=== PATIENT | female | born 1930 | race Caucasian/White ===

== ENCOUNTER 2017-03-11 16:49 | Emergency (ER) | payer MEDICARE ==
[2017-03-11] MEDS ORDERED: Zofran 4 MG/2 ML VIAL IV ONE (17:14)
[2017-03-11] MEDS ORDERED: Sodium Chloride 0.9% 1000 ML 1,000 ML IV SCH (17:15)
--- NOTE | 2017-03-11 17:22 | ERPHSYRPT ---
- History of Present Illness Time Seen by Provider: 03/11/17 17:07 Source: patient Patient Subjective Stated Complaint: PT HERE FOR HTN, PT THOUGHT HER B/P WAS HIGH BECAUSE HER EARS WHERE RED, AND STATES SHA HAS BURNING WITH URINATION,BM TODAY,NAUSEATED Triage Nursing Assessment: PT ALERT, RESP EASY, SIN W/D PINK, ABD SOFT, NONTENDET, WALKED IN, Physician History: CC: malaise Hx: Thinks BP up some. Nausea. Some dysuria. Some low back pain. Maybe low grade fever. She has abdominal hernia that always bothers her. Severity: mild Allergies/Adverse Reactions: acetaminophen [From Vicodin] Allergy (Verified 03/11/17 17:11) hydrocodone [From Vicodin] Allergy (Verified 03/11/17 17:11) Home Medications: Amlodipine Besylate 10 mg [Norvasc 10 MG] 10 mg DAILY 03/11/17 [History] Lisinopril 10 mg DAILY 03/11/17 [History] Hx Influenza Vaccination/Date Given: Yes Hx Pneumococcal Vaccination/Date Given: Yes Immunizations Up to Date: Yes - Review of Systems Constitutional: Fever (low grade), Malaise Ears, Nose, & Throat: No Ear Pain, No Nose Congestion Respiratory: No Cough Cardiac: No Chest Pain Abdominal/Gastrointestinal: Nausea, Diarrhea (a little touch), No Vomiting Genitourinary Symptoms: Dysuria, No Vaginal Discharge Musculoskeletal: Back Pain (low ) Skin: No Rash Neurological: No Focal Weakness, No Headache, No Parasthesia All Other Systems: Reviewed and Negative - Past Medical History Pertinent Past Medical History: Yes Cardiac History: Hypertension Musculoskeletal History: Arthritis - Past Surgical History Past Surgical History: Yes Gastrointestinal: Cholecystectomy Female Surgical History: Lumpectomy, Other Other Surgical History: CERVIACL CA REMOVED - Social History Smoking Status: Never smoker Exposure to second hand smoke: No Drug Use: none Patient Lives Alone: No - Female History Hx Last Menstrual Period: POST Hx Now: No - Nursing Vital Signs Nursing Vital Signs: Initial Vital Signs Temperature 97.6 F 03/11/17 16:51 Pulse Rate 88 03/11/17 16:51 Respiratory Rate 16 03/11/17 16:51 Blood Pressure 175/88 03/11/17 16:51 O2 Sat by Pulse Oximetry 98 03/11/17 16:51 Pain Scale Pain Intensity 3 - Physical Exam General Appearance: alert Eye Exam: PERRL/EOMI Ears, Nose, Throat Exam: normal ENT inspection, moist mucous membranes Neck Exam: normal inspection, non-tender, supple Respiratory Exam: normal breath sounds Cardiovascular Exam: regular rate/rhythm Gastrointestinal/Abdomen Exam: soft, No tenderness, No distention, No mass, No guarding Back Exam: No CVA tenderness Extremity Exam: normal inspection, normal range of motion Neurologic Exam: alert, oriented x 3, cooperative, sensation nml, No motor deficits Skin Exam: warm, dry, No rash SpO2 Interpretation: normal SpO2: 98 Oxygen Delivery: Room Air - Course Nursing assessment & vital signs reviewed: Yes Ordered Tests: Active Orders 24 hr Category Date Time Status Clean Catch Urine Specimen STAT Care 03/11/17 17:14 Active IV Insertion STAT Care 03/11/17 17:14 Active Rectal Temperature STAT Care 03/11/17 17:15 Active CBC W DIFF Stat Lab 03/11/17 17:49 Completed CMP Stat Lab 03/11/17 17:49 Completed Lactic Acid Stat Lab 03/11/17 17:15 Completed UA W/RFX UR CULTURE Stat Lab 03/11/17 17:45 Completed Medication Summary Generic Name Dose Route Start Last Admin Trade Name Freq PRN Reason Stop Dose Admin Sodium Chloride 1,000 mls @ 100 mls/hr 03/11/17 17:15 03/11/17 17:24 Sodium Chloride 0.9% 1000 Ml IV 04/10/17 17:14 100 mls/hr .Q10H HENNY Administration Discontinued Medications Generic Name Dose Route Start Last Admin Trade Name Freq PRN Reason Stop Dose Admin Ondansetron HCl 4 mg 03/11/17 17:14 03/11/17 17:24 Zofran 4 Mg/2 Ml Vial IV 03/11/17 17:15 4 mg STAT ONE Administration Ondansetron HCl Confirm 03/11/17 17:23 Zofran 4 Mg/2 Ml Vial Administered 03/11/17 17:24 Dose 4 mg .ROUTE .STK-MED ONE Lab/Rad Data: Laboratory Result Diagrams 03/11/17 17:49 03/11/17 17:49 Laboratory Results 03/11/17 03/11/17 03/11/17 Range/Units 17:49 17:49 17:45 WBC 8.5 (4.0-10.5) K/mm3 RBC 4.52 (4.1-5.4) M/mm3 Hgb 12.8 (12.0-16.0) gm/dl Hct 37.5 (35-47) % MCV 83.0 (78-100) fl MCH 28.3 (26-32) pg MCHC 34.1 (32-36) g/dl RDW 13.4 (11.5-14.0) % Plt Count 371 (150-450) K/mm3 MPV 8.7 (6-9.5) fl Gran % 69.7 H (36.0-66.0) % Lymphocytes % 22.8 L (24.0-44.0) % Monocytes % 6.6 (0.0-12.0) % Eosinophils % 0.5 (0.00-5.0) % Basophils % 0.4 (0.0-0.4) % Basophils # 0.03 (0-0.4) Sodium 129 L (136-145) mEq/L Potassium 3.6 (3.5-5.1) mEq/L Chloride 94 L (98-107) mEq/L Carbon Dioxide 24.3 (21-32) mEq/L Anion Gap 13.9 (5-15) MEQ/L BUN 10 (9-20) mg/dL Creatinine 0.64 (0.55-1.30) mg/dl Estimated GFR > 60 ML/MIN Glucose 126 H (70-110) MG/DL Lactic Acid (0.4-2.0) Calcium 9.2 (8.5-10.1) mg/dL Total Bilirubin 0.40 (0.2-1.0) mg/dL AST 51 H (15-37) U/L ALT 40 (12-78) U/L Alkaline Phosphatase 131 H (46-116) U/L Serum Total Protein 7.8 (6.4-8.2) gm/dL Albumin 4.4 (3.4-5.0) g/dL Ur Collection Type CCMS Urine Color YELLOW (YELLOW) Urine Appearance CLEAR (CLEAR) Urine pH 6.0 (5-6) Ur Specific Driver 1.010 (1.005-1.025) Urine Protein NEGATIVE (Negative) Urine Ketones SMALL (NEGATIVE) Urine Blood NEGATIVE (0-5) Yakov/ul Urine Nitrite NEGATIVE (NEGATIVE) Urine Bilirubin NEGATIVE (NEGATIVE) Urine Urobilinogen NORMAL (0-1) mg/dL Ur Leukocyte Esterase NEGATIVE (NEGATIVE) Urine Culture Reflexed NO (NO) Urine Glucose NEGATIVE (NEGATIVE) mg/dL Specimen Received 03-11-17 1830 03/11/17 Range/Units 17:15 WBC (4.0-10.5) K/mm3 RBC (4.1-5.4) M/mm3 Hgb (12.0-16.0) gm/dl Hct (35-47) % MCV (78-100) fl MCH (26-32) pg MCHC (32-36) g/dl RDW (11.5-14.0) % Plt Count (150-450) K/mm3 MPV (6-9.5) fl Gran % (36.0-66.0) % Lymphocytes % (24.0-44.0) % Monocytes % (0.0-12.0) % Eosinophils % (0.00-5.0) % Basophils % (0.0-0.4) % Basophils # (0-0.4) Sodium (136-145) mEq/L Potassium (3.5-5.1) mEq/L Chloride (98-107) mEq/L Carbon Dioxide (21-32) mEq/L Anion Gap (5-15) MEQ/L BUN (9-20) mg/dL Creatinine (0.55-1.30) mg/dl Estimated GFR ML/MIN Glucose (70-110) MG/DL Lactic Acid 0.9 (0.4-2.0) Calcium (8.5-10.1) mg/dL Total Bilirubin (0.2-1.0) mg/dL AST (15-37) U/L ALT (12-78) U/L Alkaline Phosphatase (46-116) U/L Serum Total Protein (6.4-8.2) gm/dL Albumin (3.4-5.0) g/dL Ur Collection Type Urine Color (YELLOW) Urine Appearance (CLEAR) Urine pH (5-6) Ur Specific Driver (1.005-1.025) Urine Protein (Negative) Urine Ketones (NEGATIVE) Urine Blood (0-5) Yakov/ul Urine Nitrite (NEGATIVE) Urine Bilirubin (NEGATIVE) Urine Urobilinogen (0-1) mg/dL Ur Leukocyte Esterase (NEGATIVE) Urine Culture Reflexed (NO) Urine Glucose (NEGATIVE) mg/dL Specimen Received - Progress Progress Note: 03/11/17 18:47 She has some mild hyponatremia here. She has been drinking a lot of water as she thought she had UTI. Advised decrease po fluids, recheck lytes and office call Sunday, return for problems. Abd is soft and NT. She is ambulatory. Counseled pt/family regarding: lab results, diagnosis, need for follow-up - Departure Time of Disposition: 18:48 Departure Disposition: Home Clinical Impression: Dizziness, Hyponatremia Condition: Stable Critical Care Time: No Referrals: KATERINA SORENSEN [Primary Care Provider] - Instructions: Hyponatremia (DC), Dizziness, Nonvertigo, (DC) Additional Instructions: Decrease oral fluids some. Take care not to fall. Lab check (lytes) and office call Sunday. Return for problems or concerns.
[2017-03-11] MEDS ORDERED: Sodium Chloride 0.9% 1000 ML 1,000 ML ONE (17:23)
[2017-03-11] MEDS ORDERED: Zofran 4 MG/2 ML VIAL ONE (17:23)
[2017-03-11 17:53] LABS: BASOPHIL % 0.4 % (0.0-0.4); Basophil (Absolute #) 0.03 (0-0.4); Eosinophil % 0.5 % (0.00-5.0); Eosinophil (Absolute #) 0.04 (0-0.5); Granulocyte Absolute (ANC) 5.92 (1.4-6.9); Granulocytes % 69.7 % (36.0-66.0); Hematocrit 37.5 % (35-47); Hemoglobin 12.8 gm/dl (12.0-16.0); Lymphocyte (Absolute #) 1.93 (1.0-4.6); Lymphocytes % 22.8 % (24.0-44.0); Mean Corpuscular Hemoglobin 28.3 pg (26-32); Mean Corpuscular Hgb Concent. 34.1 g/dl (32-36); Mean Platelet Volume 8.7 fl (6-9.5); Monocyte (Absolute #) 0.56 (0.0-1.3); Monocytes % 6.6 % (0.0-12.0); Platelet Count 371 K/mm3 (150-450); Red Blood Count 4.52 M/mm3 (4.1-5.4); Red Cell Distribution Width 13.4 % (11.5-14.0); White Blood Count 8.5 K/mm3 (4.0-10.5)
[2017-03-11 18:18] LABS: ALBUMIN 4.4 g/dL (3.4-5.0); ALKALINE PHOSPHATASE 131 U/L (46-116); ANION GAP 13.9 MEQ/L (5-15); BLOOD UREA NITROGEN 10 mg/dL (9-20); CHLORIDE 94 mEq/L (98-107); Calcium 9.2 mg/dL (8.5-10.1); Carbon Dioxide 24.3 mEq/L (21-32); Creatinine 1 0.64 mg/dl (0.55-1.30); EST GLOMERULAR FILTRATION RATE > 60 ML/MIN; Glucose 126 MG/DL (70-110); Potassium 3.6 mEq/L (3.5-5.1); SGOT/AST 51 U/L (15-37); SGPT/ALT 40 U/L (12-78); SODIUM 129 mEq/L (136-145); Total Protein 7.8 gm/dL (6.4-8.2)
[2017-03-11 18:31] LABS: Appearance CLEAR (CLEAR); Bilirubin NEGATIVE (NEGATIVE); Blood NEGATIVE Ery/ul (0-5); Glucose NEGATIVE (NEGATIVE); Ketones SMALL (NEGATIVE); Leukocyte Esterase NEGATIVE (NEGATIVE); Nitrite NEGATIVE (NEGATIVE); Protein,Urine Dip NEGATIVE (Negative); Urobilinogen NORMAL mg/dL (0-1)
[2017-03-11 18:59] VITALS: BP 179/98; PULSE 88; O2SAT 96
== END 2017-03-11 18:58 | disposition home or self-care (01) ==
LOC: ED 16:49
DX: R42 Dizziness and giddiness (principal); E87.1 Hypo-osmolality and hyponatremia; I10 Essential (primary) hypertension; M19.90 Unspecified osteoarthritis, unspecified site
CPT/HCPCS: 36000; 36415; 80053; 81002; 83605; 85025; 96360; 96374; 99284; J2405